=== PATIENT | male | born 1970 | race Caucasian/White ===

== ENCOUNTER 2021-10-13 08:44 | Day surgery (SDC) | payer BC ==
[2021-10-13] MEDS ORDERED: Lidocaine 1% PF 2 ML SDV INJECT ONE (08:45)
[2021-10-13] MEDS ORDERED: Sodium Chloride 0.9% 10 ML Syringe FLUSH PRN (08:45)
[2021-10-13] MEDS ORDERED: Glycopyrrolate 0.2 MG/ML 5 ML MDV IV ONE (08:45)
[2021-10-13] MEDS ORDERED: Propofol 200 MG/20 ML SDV IV ONE (08:45)
[2021-10-13] MEDS ORDERED: Lactated Ringers 1,000 ML IV SCH (08:45)
== END 2021-10-13 12:32 | disposition home or self-care (01) ==
LOC: FB.SDS 08:44 → EDSEX 08:44 → FB.SDS 12:32
PROVIDERS: ATTEND Surgery
DX: Z12.11 Encounter for screening for malignant neoplasm of colon (principal); K58.9 Irritable bowel syndrome, unspecified; Z79.899 Other long term (current) drug therapy; Z88.8 Allergy status to other drugs, medicaments and biological substances; K21.9 Gastro-esophageal reflux disease without esophagitis; Z98.890 Other specified postprocedural states
CPT/HCPCS: 00812-QZ; 88305; J2704; J3490; J7120